=== PATIENT | male | born 1970 | race Caucasian/White ===

== ENCOUNTER 2018-09-27 15:35 | Emergency (ER) | payer OTHER ==
--- NOTE | 2018-09-27 15:57 | EDPHY ---
H & P Stated Complaint: LOWER ABD PAIN/FREQ STOOLS WITH BLOOD Source: Patient Exam Limitations: No limitations - Personal History Current Tetanus Diphtheria and Acellular Pertussis (TDAP): Yes - Medical/Surgical History Hx Asthma: No Hx Chronic Respiratory Disease: No Hx Diabetes: No Hx Cardiac Disease: No Hx Renal Disease: No Hx Cirrhosis: No Hx Alcoholism: No Hx HIV/AIDS: No Hx Splenectomy or Spleen Trauma: No Other PMH: Knee surgery. Infection in spine- diskitis. - Social History Smoking Status: Never smoked Time Seen by Provider: 09/27/18 15:56 HPI/ROS: HPI: This is a 48-year-old male who presents with Chief Complaint: LOWER ABD PAIN/FREQ STOOLS WITH BLOOD Location: Lower abdomen Quality: Pain with blood Duration: 10 days Signs and Symptoms: no fever, no nausea, no vomiting, no hematemesis,+ blood in stool, no abdominal bloating, no diarrhea, no back pain, no urinary symptoms, no testicular/groin pain, no indigestion, no chest pain, no shortness of breath Timing: Acute, improved Severity: Etso-yo-nqemaeny Context: Patient is generally healthy, drinks alcohol 2-3 times per week, presents with sudden onset of lower abdominal cramping accompanied by several loose stools per day that had bright red blood per rectum approximately 7 days ago. Patient reports that the bleeding stopped but the lower abdominal cramping has continued. It is intermittent in nature. He reports he has decreased appetite but still able to eat and drink. He denies any nausea, vomiting, fever, urinary symptoms, groin pain. He does not take NSAIDs regularly. No colon cancer in the family. No weight loss. Modifying Factors: None Comment: ROS: A comprehensive 10 system review of systems is otherwise negative aside from elements mentioned in the history of present illness. 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 Surgical history: Knee surgery. Social history: Never smoked. Family history noncontributory. 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 CONSTITUTIONAL: Extremely well-appearing middle-aged white male, awake and alert, no obvious distress HEENT: Atraumatic and normocephalic, PERRL, EOMI. Nares patent; no rhinorrhea; no nasal mucosal edema. Tympanic membranes clear. Oropharynx clear, no exudate and moist pink mucosa. Airway patent. No lymphadenopathy. No meningismus. Cardiovascular: Normal S1/S2, regular rate, regular rhythm, without murmur rub or gallop. PULMONARY/CHEST: Symmetrical and nontender. Clear to auscultation bilaterally. Good air movement. No accessory muscle usage. ABDOMEN: Soft, nondistended, nontender, no rebound, no guarding, no peritoneal signs, no masses or organomegaly. No CVAT. RECTAL: Good sphincter tone, light brown stool in vault, 1-2 external hemorrhoids-nonthrombosed, no fissures, no palpable masses, guaiac negative EXTREMITIES: 2/2 pulses, strength 5/5, no deformities, no clubbing, no cyanosis or edema. NEUROLOGICAL: no focal neuro deficits. GCS 15. SKIN: Warm and dry, no erythema. no rash. Good capillary refill. (Rylee Miller) Constitutional: Initial Vital Signs Temperature (C) 36.9 C 09/27/18 15:45 Heart Rate 74 09/27/18 15:45 Respiratory Rate 19 09/27/18 15:45 Blood Pressure 146/81 H 09/27/18 15:45 O2 Sat (%) 94 09/27/18 15:45 O2 Delivery Mode Room Air Allergies/Adverse Reactions: No Known Allergies Allergy (Verified 09/27/18 15:45) Home Medications: Medication Instructions Recorded Finasteride [Proscar] 1.25 mg PO DAILY 02/06/16 Hydrocortisone AC/Lidocaine 1 tessa TP Q6 PRN #28 cream.gm. 09/27/18 [Lidocaine-Hc 3-0.5% Cream] Medical Decision Making - Diagnostics Imaging Results: Imaging Impressions Abdomen CT 09/27/18 16:05 Impression: No evidence of abdominopelvic inflammatory mass or ascites. Rylee Miller was notified of these findings by telephone at 5:03 PM on 09/27/2018. ED Course/Re-evaluation: Vital signs reviewed and stable upon arrival. IV access, laboratory studies, CT abdomen and pelvis scan ordered Fecal occult blood negative 1654: Labs reviewed. No signs of leukocytosis/anemia/platelet dysfunction/PAOLO/ elevated LFTs/electrolyte imbalance/pancreatitis/coagulopathy. 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 Advised continue supportive care. Prescription for Anusol HC given. Follow-up with Gastroenterology. No signs of thrombosed or bleeding hemorrhoids. This patient was seen under the supervision of my secondary supervising physician. I evaluated care for this patient independently. Discussed this patient with Dr. Davis who did not see the patient. (Rylee Miller) I did not see this patient while he was in the emergency department. However his care was discussed with the PA while the patient was in the department. I agree with treatment plan and management (Cliff Davis) Differential Diagnosis: Abdominal pain including but not limited to appendicitis, cholecystitis, gastritis and urinary tract infection. (Rylee Miller) - Data Points Laboratory Results: Laboratory Results 09/27/18 16:05 09/27/18 16:05 09/27/18 09/27/18 09/27/18 17:12 16:05 16:05 WBC RBC Hgb Hct MCV MCH MCHC RDW Plt Count MPV Neut % (Auto) Lymph % (Auto) [place] % (Auto) Eos % (Auto) Baso % (Auto) Nucleat RBC Rel Count Absolute Neuts (auto) Absolute Lymphs (auto) Absolute Monos (auto) Absolute Eos (auto) Absolute Basos (auto) Absolute Nucleated RBC Immature Gran % Immature Gran # PT 13.9 SEC SEC (12.0-15.0) INR 1.05 (0.83-1.16) APTT 29.8 SEC SEC (23.0-38.0) Sodium 139 mEq/L mEq/L (135-145) Potassium 4.0 mEq/L mEq/L (3.5-5.2) Chloride 108 mEq/L mEq/L (97-110) Carbon Dioxide 23 mEq/l mEq/l (22-31) Anion Gap 8 mEq/L mEq/L (6-14) BUN 20 mg/dL mg/dL (7-23) Creatinine 1.2 mg/dL mg/dL (0.7-1.3) Estimated GFR > 60 Glucose 94 mg/dL mg/dL (70-100) Calcium 9.0 mg/dL mg/dL (8.5-10.4) Total Bilirubin 0.5 mg/dL mg/dL (0.1-1.4) Conjugated Bilirubin 0.3 mg/dL mg/dL (0.0-0.5) Unconjugated Bilirubin 0.2 mg/dL mg/dL (0.0-1.1) AST 25 IU/L IU/L (17-59) ALT 31 IU/L IU/L (21-72) Alkaline Phosphatase 83 IU/L IU/L (38-126) Total Protein 7.2 g/dL g/dL (6.3-8.2) Albumin 4.3 g/dL g/dL (3.5-5.0) Lipase 70 IU/L IU/L (23-300) Stool Occult Bld Scrn NEGATIVE (NEGATIVE) 09/27/18 16:05 WBC 9.11 10^3/uL 10^3/uL (3.80-9.50) RBC 5.18 10^6/uL 10^6/uL (4.40-6.38) Hgb 16.4 g/dL g/dL (13.7-17.5) Hct 47.5 % % (40.0-51.0) MCV 91.7 fL fL (81.5-99.8) MCH 31.7 pg pg (27.9-34.1) MCHC 34.5 g/dL g/dL (32.4-36.7) RDW 12.6 % % (11.5-15.2) Plt Count 223 10^3/uL 10^3/uL (150-400) MPV 8.5 fL L fL (8.7-11.7) Neut % (Auto) 68.4 % % (39.3-74.2) Lymph % (Auto) 21.4 % % (15.0-45.0) [place] % (Auto) 7.0 % % (4.5-13.0) Eos % (Auto) 2.7 % % (0.6-7.6) Baso % (Auto) 0.4 % % (0.3-1.7) Nucleat RBC Rel Count 0.0 % % (0.0-0.2) Absolute Neuts (auto) 6.22 10^3/uL 10^3/uL (1.70-6.50) Absolute Lymphs (auto) 1.95 10^3/uL 10^3/uL (1.00-3.00) Absolute Monos (auto) 0.64 10^3/uL 10^3/uL (0.30-0.80) Absolute Eos (auto) 0.25 10^3/uL 10^3/uL (0.03-0.40) Absolute Basos (auto) 0.04 10^3/uL 10^3/uL (0.02-0.10) Absolute Nucleated RBC 0.00 10^3/uL 10^3/uL (0-0.01) Immature Gran % 0.1 % % (0.0-1.1) Immature Gran # 0.01 10^3/uL 10^3/uL (0.00-0.10) PT INR APTT Sodium Potassium Chloride Carbon Dioxide Anion Gap BUN Creatinine Estimated GFR Glucose Calcium Total Bilirubin Conjugated Bilirubin Unconjugated Bilirubin AST ALT Alkaline Phosphatase Total Protein Albumin Lipase Stool Occult Bld Scrn Medications Given: Discontinued Medications Sodium Chloride (Ns) 1,000 mls @ 0 mls/hr IV EDNOW ONE; Wide Open PRN Reason: Protocol Stop: 09/27/18 16:06 Last Admin: 09/27/18 16:30 Dose: 1,000 mls Departure - Departure Disposition: Home, Routine, Self-Care Clinical Impression: Diverticulosis of colon without diverticulitis, External hemorrhoids without complication Condition: Good Instructions: Diverticulitis (ED), Diverticulosis (ED), Diverticulitis Diet (ED ) Additional Instructions: There is no blood in your stool and the bleeding is likely from your external hemorrhoids. Take Anusol HC as needed for hemorrhoid pain. Consume a minimum of 8-10 glasses of water or electrolyte fluid replacement drinks that include Gatorade, Powerade, Pedialyte. Eat a bland diet for the next 48 hours and then slowly advance as tolerated. Follow diverticular diet. Take MiraLax daily as needed to prevent constipation. Limit NSAID use that includes ibuprofen, Motrin, Advil. Follow-up with Gastroenterology. Referrals: Farshad Dudley MD [Primary Care Provider] - As per Instructions Reuben Tran MD [Medical Doctor] - As per Instructions Prescriptions: Hydrocortisone AC/Lidocaine [Lidocaine-Hc 3-0.5% Cream] 1 tessa TP Q6 PRN #28 cream.gm. PRN Reason: Pain, Hemorrhoid
[2018-09-27] MEDS ORDERED: NS 1,000 ML IV ONE (16:05)
[2018-09-27] MEDS ORDERED: IOPAMIDOL (ISOVUE-300) 200 ML BTL ONE (16:09)
[2018-09-27 16:19] LABS: PLATELET COUNT 223 10^3/uL (150-400)
[2018-09-27 16:28] LABS: INR 1.05 (0.83-1.16); PROTIME(PATIENT) 13.9 SEC (12.0-15.0)
[2018-09-27 17:44] VITALS: BP 128/69
== END 2018-09-27 17:44 | disposition home or self-care (01) ==
DX: K57.30 Diverticulosis of large intestine without perforation or abscess without bleeding (principal); K64.4 Residual hemorrhoidal skin tags; E86.9 Volume depletion, unspecified
CPT/HCPCS: Q9967

== ENCOUNTER 2018-09-30 22:37 | Emergency (ER) | payer OTHER ==
[2018-09-30 23:24] LABS: PLATELET COUNT 207 10^3/uL (150-400)
--- NOTE | 2018-09-30 23:26 | EDPHY ---
General - History Smoking Status: Never smoked Time Seen by Provider: 09/30/18 23:00 Narrative: CLINICAL IMPRESSION: Ascending colitis, diarrhea ASSESSMENT/PLAN: 48-year-old male returns to the emergency department for the 2nd time 5 days with complaints of worsening abdominal pain associated with fever today. Patient continues to have diarrhea which she has now had for 13 days. No reported visible bloody stools although preliminary stool cultures are guaiac- positive. Abdomen soft although with right lower quadrant rebound tenderness. No leukocytosis, reassuring labs, no renal insufficiency or electrolyte imbalance. No signs of severe dehydration. Patient has been tolerating p.o.. CT scan repeated showing a development of ascending colitis with inflammatory changes. Stool cultures pending. Discussed with Dr. Nowak. Patient started on Cipro and Flagyl pending stool culture results. Initial dose given in the ED. PCP follow-up recommended as well as GI consultation. He has a referral from his last ER visit for GI. Warning signs return to ED sooner outlined and discharge. DIFFERENTIAL DX: Abdominal pain includes but not limited to acute appendicitis, diverticulitis, cholecystitis, pancreatitis, SBO, gastroenteritis, constipation ED PROCEDURES: See lab and/or imaging results below ED COURSE: Lab results reviewed. No leukocytosis, metabolic disturbance, electrolyte imbalance, renal insufficiency. Patient was able to leave a stool sample and stool studies were ordered. Long discussion with patient and his regarding symptoms. Patient's states"it takes him a lot come back to the ER and I know that he is miserable". They have elected to repeat CT scan. 1:23am CT findings discussed with Dr. Nowak who spoke to Dr. Alvarez, CT consistent with ascending colitis and inflammatory changes. 1:30 a.m.: CT results discussed with patient and family. Vital signs stable. Initial dose of Cipro and Flagyl ordered. Stool cultures pending. Guaiac- positive today. Will discharge with antibiotics and PCP follow-up. Low threshold for return to ED sooner as outlined and discharge. Discussed with Dr. Nowak. CHIEF COMPLAINT: Persistent abdominal pain, fever HPI: 48-year-old male seen in our emergency department 3 days ago for 10 days of diarrhea associated with generalized abdominal cramping, returns to the ED today with concerns of persistent symptoms, continued diarrhea, and development of low-grade fever today. Patient reports fever was 100. No associated vomiting , bloody stools and he had negative guaiac test [address] scan 3 days ago showed no significant abnormality, diverticulosis without diverticulitis, normal appearing appendix. Patient reports pain is slightly worse to the right lower quadrant. He did a liquid diet for the last 3 days, today had some rice and yogurt. He also states he has had 70 oz of water to drink and feels well hydrated. No associated flank pain, UTI symptoms, bloody urine. He was apparently told he had hemorrhoids at his last visit, has not yet followed up with GI. No recent travel, antibiotics, or ill contacts. No history of IBS, Crohn's or ulcerative colitis. No family history of colon cancer. PAST MEDICAL HISTORY: None reported See nurse/triage notes for additional history if applicable Pertinent Past Surgical History: Prior Ortho surgery Family History: No family history of IBS, Crohn's, ulcerative colitis or colon cancer Social History: , here with his , nonsmoker, does not drink outside of social situations REVIEW OF SYSTEMS: All other systems negative Constitutional: Positive for fever, no chills, denies appetite change. Cardiovascular: No chest pain, no palpitations. Respiratory: No cough, no shortness of breath. Gastrointestinal: Positive for abdominal pain, no vomiting, positive for diarrhea. Genitourinary: No hematuria, dysuria, flank pain, pelvic pain Musculoskeletal: No back pain, joint swelling, joint pain, myalgias. Skin: No rashes, color change. Neurological: No headache, dizziness, weakness. PHYSICAL EXAM: General Appearance: Alert, oriented, appropriate, cooperative, NAD, well hydrated, non-toxic appearing, VSS, afebrile, no hypoxia. HEENT: Oropharynx clear is no erythema or exudates, no tonsillar hypertrophy or asymmetry. Dentition without abnormality. Neck: Supple, nontender, no lymphadenopathy, no midline pain, FROM, no meningismus. Respiratory: There are no retractions, lungs are clear to auscultation. Cardiac: Regular rate and rhythm, no murmurs or gallops. Gastrointestinal: Abdomen is soft, generalized discomfort, more-so to the right lower quadrant, rebound tenderness noted, no guarding or rigidity, no distention. Neurological: Alert and oriented x 3, CN 2-12 grossly intact Skin: Warm, dry, no rashes, no nodules on palpation. MEDICAL DECISION MAKING: Patient was seen independently. Secondary supervising physician at time of evaluation was Dr. Nowak. Diagnosis: Ascending colitis . New, requires workup Summary: See Assessment and Plan for summary of ED visit Clinical lab tests: ordered / reviewed. Independent visualization of images, tracing, or specimens: Yes. Decision to obtain medical records or history from someone other than the patient: Patient's Review / Summarize previous medical records: Reviewed recent ED note Discussed patient with another provider: Dr. Nowak, radiology Patient Progress: Stable. (Tayo Cooper) - Objective Vital Signs: Initial Vital Signs Temperature (C) 37.3 C 09/30/18 22:51 Heart Rate 86 09/30/18 22:51 Respiratory Rate 18 09/30/18 22:51 Blood Pressure 132/84 H 09/30/18 22:51 O2 Sat (%) 94 09/30/18 22:51 O2 Delivery Mode Room Air Allergies/Adverse Reactions: No Known Allergies Allergy (Verified 09/30/18 22:55) Home Medications: Medication Instructions Recorded Finasteride [Proscar] 1.25 mg PO DAILY 02/06/16 Hydrocortisone AC/Lidocaine 1 tessa TP Q6 PRN #28 cream.gm. 09/27/18 [Lidocaine-Hc 3-0.5% Cream] Ciprofloxacin [Cipro 500 mg] 500 mg PO BID #14 tab 10/01/18 metroNIDAZOLE [Flagyl 500 mg (*)] 500 mg PO BID #14 tab 10/01/18 Laboratory Results: Laboratory Results 09/30/18 23:15 09/30/18 23:15 Microbiology Results: MICROBIOLOGY 10/01/18 00:01 Stool Gastrointestinal Tract Panel (PCR) - Final Clostridium Difficile Detected Medications Given: Discontinued Medications Ciprofloxacin (Cipro) 500 mg PO EDNOW ONE PRN Reason: Protocol Stop: 10/01/18 01:30 Last Admin: 10/01/18 01:35 Dose: 500 mg Sodium Chloride (Ns) 1,000 mls @ 0 mls/hr IV EDNOW ONE; Wide Open PRN Reason: Protocol Stop: 10/01/18 00:13 Last Admin: 10/01/18 00:40 Dose: 1,000 mls Metronidazole (Flagyl) 500 mg PO EDNOW ONE PRN Reason: Protocol Stop: 10/01/18 01:29 Last Admin: 10/01/18 01:35 Dose: 500 mg Departure - Departure Disposition: Home, Routine, Self-Care Clinical Impression: Colitis, Diarrhea Condition: Fair Instructions: Colitis (ED) Additional Instructions: DISCHARGE INSTRUCTIONS FROM YOUR DOCTOR Thank you for visiting our emergency department today. Please keep in mind that discharge from the emergency department does not mean that there is nothing wrong - it simply means that we have not identified an emergency condition that requires further evaluation or treatment in the hospital. You should always plan to follow up with primary care for re-evaluation of your condition in the next 2-3 days. If you have been referred to a specialist, please call as soon as possible (today or tomorrow) to schedule your follow up appointment at the appropriate time. LABS CONTINUED TO BE REASSURING WITH NO DEVELOPMENT OF AN INFECTION FIGHTING COUNT. CT TONIGHT SHOWS ASCENDING COLITIS. STOOL CULTURES ARE PENDING. YOU DO APPEAR TO HAVE SOME BLOOD IN HER STOOL TODAY. ANTIBIOTICS WERE INITIATED IN THE EMERGENCY DEPARTMENT. PRESCRIPTION FOR ANTIBIOTICS PROVIDED. FOLLOW UP WITH HER PRIMARY CARE DOCTOR IN 24-48 HOURS. FOLLOW UP WITH GI REFERRED TO IN HER LAST ED VISIT. RETURN TO THE EMERGENCY DEPARTMENT SOONER FOR WORSENING SYMPTOMS, PERSISTENT FEVERS, INABILITY TO STAY HYDRATED, VOMITING OR ANY OTHER CONCERNS. People present with illnesses and injuries in different ways, and it is always possible that we have missed something. You may always return for re-evaluation if symptoms worsen or if they are not improving or if you develop new/different symptoms. Again, thank you for choosing our emergency department. We hope that you feel better. Referrals: Farshad Dudley MD [Primary Care Provider] - As per Instructions Prescriptions: Ciprofloxacin [Cipro 500 mg] 500 mg PO BID #14 tab metroNIDAZOLE [Flagyl 500 mg (*)] 500 mg PO BID #14 tab
[2018-10-01] MEDS ORDERED: NS 1,000 ML IV ONE (00:12)
[2018-10-01] MEDS ORDERED: IOPAMIDOL (ISOVUE-300) 100 ML BTL ONE (00:19)
[2018-10-01] MEDS ORDERED: metroNIDAZOLE 500 MG TAB PO ONE (01:28)
[2018-10-01] MEDS ORDERED: CIPROFLOXACIN 500 MG TAB PO ONE (01:29)
[2018-10-01 01:38] VITALS: BP 135/72
--- NOTE | 2018-10-02 15:24 | EDPHY ---
[facility] Addendum - Addendum .: The patient's stool culture and C difficile positive. This was reported on 10-02. I called and discussed this with the patient. He is feeling better. Patient was advised to stop taking the ciprofloxacin and Flagyl and begin taking vancomycin 125 mg p.o. Four times daily times 10 days. Prescription called in. Patient will also notify his primary care physician, Dr. Farshad Dudley.
== END 2018-10-01 01:44 | disposition home or self-care (01) ==
DX: A04.72 Enterocolitis due to Clostridium difficile, not specified as recurrent (principal); E86.9 Volume depletion, unspecified
CPT/HCPCS: Q9967